=== PATIENT | female | born 1990 | race Caucasian/White ===

== ENCOUNTER 2021-11-19 07:09 | Inpatient (IN) | payer OTHER ==
[~2021-11-19] VITALS: Ht 170.2 cm; Wt 136.1 kg
[2021-11-19] MEDS ORDERED: SODIUM CHLORIDE 0.9% 1000ML 1,000 ML IV STA (07:15)
[2021-11-19] MEDS ORDERED: ONDANSETRON HCL INJ 2MG/ML 2ML 2 MG/ML VIAL IV STA (07:15)
[2021-11-19 07:33] LABS: BASOPHILS # (AUTO) 0.1 (0.0-0.1); BASOPHILS % 0.6 % (0.0-1.0); EOSINOPHILS # (AUTO) 0.2 (0.0-0.4); EOSINOPHILS % 2.1 % (0.0-6.0); HEMATOCRIT 33.4 % (34.2-44.1); HEMOGLOBIN 10.5 g/dL (12.0-16.0); LYMPHOCYTES # (AUTO) 2.2 (1.0-3.2); LYMPHOCYTES % 26.8 % (18.0-39.1); MEAN CORPUSCULAR HEMOGLOBIN 26.8 pg (28-32); MEAN CORPUSCULAR HGB CONC 31.4 g/dL (31-35); MEAN CORPUSCULAR VOLUME 85.2 fL (81-99); MONOCYTES # (AUTO) 0.6 (0.2-0.8); MONOCYTES % 6.8 % (4.4-11.3); NEUTROPHILS # (AUTO) 5.2 (2.1-6.9); NEUTROPHILS % 62.7 % (38.7-80.0); PLATELET COUNT 238 x10e3/uL (140-360); RED BLOOD COUNT 3.92 x10e6/uL (3.6-5.1); RED CELL DISTRIBUTION WIDTH 13.5 % (11.7-14.4)
[2021-11-19 07:58] LABS: PROTHROMBIN TIME 14.1 seconds (11.9-14.5)
[2021-11-19 07:59] LABS: PARTIAL THROMBOPLASTIN TIME 25.8 seconds (23.8-35.5)
[2021-11-19 08:03] LABS: ALBUMIN 3.7 g/dL (3.5-5.0); ALBUMIN/GLOBULIN RATIO 1.3 (0.8-2.0); ANION GAP 17.9 mmol/L (8-16); CALCIUM 8.4 mg/dL (8.4-10.2); CREATININE, SERUM 0.74 mg/dL (0.57-1.11); POTASSIUM 3.9 mmol/L (3.5-5.1)
[2021-11-19 08:16] LABS: CLARITY,URINE CLEAR (CLEAR); COLOR,URINE YELLOW (YELLOW); KETONES,URINE NEGATIVE (NEGATIVE); LEUKOCYTE ESTERASE ,URINE TRACE (NEGATIVE); NITRITE,URINE NEGATIVE (NEGATIVE); PROTEIN,URINE DIPSTICK 1+ (NEGATIVE); URINE UROBILINOGEN 0.2 mg/dL (0.2 - 1)
[2021-11-19 08:32] LABS: BACTERIA,URINE MANY /HPF; EPITHELIAL CELLS,URINE MANY /LPF; RBC,URINE 0-5 /HPF (0-5); WBC,URINE (MAN) 21-50 /HPF (0-5)
[2021-11-19] MEDS ORDERED: IOPAMIDOL 370 MG/ML 100 ML INFUS..BTL INJ ONE (08:33)
[2021-11-19] MEDS ORDERED: Morphine 2mg Syringe 2 MG/ML SYR IV PRN (11:00)
[2021-11-19] MEDS ORDERED: SODIUM CHLORIDE 0.9% 1000ML 1,000 ML IV SCH (11:00)
[2021-11-19] MEDS ORDERED: ONDANSETRON HCL INJ 2MG/ML 2ML 2 MG/ML VIAL IV PRN ×2 (11:00→11:15)
[2021-11-19] MEDS ORDERED: HYDRALAZINE HCL 20 MG/ML VIAL IV PRN (11:15)
[2021-11-19] MEDS ORDERED: DOCUSATE SODIUM 100 MG CAP PO PRN (11:15)
[2021-11-19] MEDS ORDERED: ALBUTEROL/IPRATROPIUM 3 ML NEB NEB PRN (11:15)
[2021-11-19] MEDS ORDERED: ACETAMINOPHEN 325 MG TAB PO PRN (11:15)
[2021-11-19] MEDS ORDERED: POTASSIUM CHLORIDE 20 MEQ TAB CR PO PRN (11:15)
[2021-11-19] MEDS ORDERED: LIDOCAINE 4% PATCH TP PRN (11:15)
[2021-11-19] MEDS ORDERED: DEXTROSE 50% SYRINGE 50 ML IV PRN (11:15)
[2021-11-19] MEDS ORDERED: DIPHENHYDRAMINE HCL 25 MG CAP PO PRN (11:15)
[2021-11-19] MEDS ORDERED: BENZONATATE 100 MG CAP PO PRN (11:15)
[2021-11-19] MEDS ORDERED: SIMETHICONE 80 MG CHEW PO PRN (11:15)
[2021-11-19 11:34] LABS: % IRON SATURATION 15 % (15-50); IRON 67 ug/dL (50-170); TOTAL IRON BINDING CAPACITY 444 ug/dL (261-478); TRANSFERRIN 317 mg/dL (180-382)
[2021-11-19] MEDS ORDERED: QUETIAPINE FUMARATE 25 MG TAB PO SCH (11:45)
[2021-11-19] MEDS: DEXTROSE 5%/0.9% SOD CHL 1,000 ML IV SCH (12:20)
[2021-11-19] MEDS: PAROXETINE HCL 12.5 MG TABSR PO SCH (13:00)
[2021-11-19] MEDS ORDERED: PAROXETINE HCL25 MG PO (13:30)
[2021-11-19] MEDS ORDERED: QUETIAPINE FUMA25 MG PO (13:30)
[2021-11-19 13:58] VITALS: BP 136/66
[2021-11-19] MEDS ORDERED: CITRATE OF MAGNESIA 300ML BOTTLE PO ONE (15:30)
[2021-11-19 15:46] VITALS: BP 127/72
[2021-11-19 17:23] LABS: HEMATOCRIT 30.5 % (34.2-44.1); HEMOGLOBIN 9.4 g/dL (12.0-16.0)
[2021-11-19 20:00] VITALS: BP 117/80
[2021-11-19] MEDS ORDERED: LORAZEPAM INJ 2 MG/ML VIAL ONE (21:02)
[2021-11-19] MEDS ORDERED: DIPHENHYDRAMINE HCL INJ 50 MG/ML VIAL ONE (21:03)
[2021-11-19 21:12] LABS: BASOPHILS % 0.5 % (0.0-1.0); EOSINOPHILS % 0.4 % (0.0-6.0); HEMATOCRIT 24.5 % (34.2-44.1); HEMOGLOBIN 7.6 g/dL (12.0-16.0); LYMPHOCYTES # (AUTO) 2.2 (1.0-3.2); LYMPHOCYTES % 26.1 % (18.0-39.1); MEAN CORPUSCULAR VOLUME 87.2 fL (81-99); MONOCYTES # (AUTO) 0.6 (0.2-0.8); MONOCYTES % 6.6 % (4.4-11.3); NEUTROPHILS # (AUTO) 5.4 (2.1-6.9); NEUTROPHILS % 65.4 % (38.7-80.0); PLATELET COUNT 238 x10e3/uL (140-360); RED BLOOD COUNT 2.81 x10e6/uL (3.6-5.1); RED CELL DISTRIBUTION WIDTH 13.6 % (11.7-14.4)
[2021-11-19 21:32] LABS: ALBUMIN 3.1 g/dL (3.5-5.0); ALBUMIN/GLOBULIN RATIO 1.5 (0.8-2.0); ANION GAP 15.2 mmol/L (8-16); CALCIUM 7.7 mg/dL (8.4-10.2); CREATININE, SERUM 0.69 mg/dL (0.57-1.11); POTASSIUM 4.2 mmol/L (3.5-5.1)
[2021-11-19] MEDS ORDERED: DIPHENHYDRAMINE HCL INJ 50 MG/ML VIAL IV ONE (21:39)
[2021-11-19] MEDS ORDERED: LORAZEPAM INJ 2 MG/ML VIAL IV ONE (21:39)
[2021-11-19 21:52] VITALS: BP 117/80
[2021-11-19] MEDS ORDERED: SODIUM CHLORIDE 0.9% 250ML 250 ML IV ONE (22:00)
[2021-11-20] VITALS: BP 98/65
[2021-11-20] MEDS ORDERED: SODIUM CHLORIDE 0.9% 1000ML 1,000 ML ONE ×2 (00:31→04:01)
[2021-11-20] MEDS: DEXTROSE 5%/0.9% SOD CHL 1,000 ML IV SCH ×2 (00:35→11:56)
[2021-11-20] MEDS ORDERED: GADOBENATE DIMEGLUMINE 1 ML IV ONE (02:36)
[2021-11-20] MEDS ORDERED: CITRATE OF MAGNESIA 300ML BOTTLE PO ONE ×2 (06:00→17:00)
[2021-11-20 08:20] VITALS: BP 134/70
[2021-11-20] MEDS: PAROXETINE HCL 12.5 MG TABSR PO SCH (09:00)
[2021-11-20] MEDS: THIAMINE HCL INJ 100 MG/ML 2ML VIAL IV SCH (09:05)
[2021-11-20 10:02] VITALS: BP 134/70
[2021-11-20 10:17] LABS: BASOPHILS % 0.4 % (0.0-1.0); EOSINOPHILS # (AUTO) 0.1 (0.0-0.4); HEMATOCRIT 26.2 % (34.2-44.1); HEMOGLOBIN 8.3 g/dL (12.0-16.0); LYMPHOCYTES # (AUTO) 2.1 (1.0-3.2); LYMPHOCYTES % 28.7 % (18.0-39.1); MEAN CORPUSCULAR HEMOGLOBIN 27.9 pg (28-32); MEAN CORPUSCULAR HGB CONC 31.7 g/dL (31-35); MEAN CORPUSCULAR VOLUME 88.2 fL (81-99); MONOCYTES # (AUTO) 0.6 (0.2-0.8); MONOCYTES % 8.7 % (4.4-11.3); NEUTROPHILS # (AUTO) 4.4 (2.1-6.9); PLATELET COUNT 178 x10e3/uL (140-360); RED BLOOD COUNT 2.97 x10e6/uL (3.6-5.1); RED CELL DISTRIBUTION WIDTH 15.2 % (11.7-14.4)
[2021-11-20 10:47] LABS: ANION GAP 12.2 mmol/L (8-16); CALCIUM 7.6 mg/dL (8.4-10.2); CREATININE, SERUM 0.68 mg/dL (0.57-1.11); POTASSIUM 4.2 mmol/L (3.5-5.1)
[2021-11-20 10:50] VITALS: BP 138/78
[2021-11-20 15:21] VITALS: BP 132/80
[2021-11-20 18:58] LABS: HEMATOCRIT 24.9 % (34.2-44.1); HEMOGLOBIN 7.9 g/dL (12.0-16.0)
[2021-11-20] MEDS ORDERED: PEG (High)/E-LYTE SOLN 4,000 ML BTL PO ONE (19:00)
[2021-11-20 19:17] LABS: ALBUMIN 3.3 g/dL (3.5-5.0); ALBUMIN/GLOBULIN RATIO 1.5 (0.8-2.0); ANION GAP 12.8 mmol/L (8-16); CALCIUM 7.8 mg/dL (8.4-10.2); CREATININE, SERUM 0.64 mg/dL (0.57-1.11); MAGNESIUM 1.8 MG/DL (1.3-2.1); POTASSIUM 3.8 mmol/L (3.5-5.1)
[2021-11-20 19:38] LABS: THYROID STIMULATING HORMONE 5.454 uIU/mL (0.350-4.940)
[2021-11-20 20:00] VITALS: BP 136/83
[2021-11-20] MEDS: QUETIAPINE FUMARATE 25 MG TAB PO SCH ×2 (21:32)
[2021-11-20] MEDS: MELATONIN 5 MG TABLET PO PRN (21:38)
[2021-11-20] MEDS ORDERED: ONDANSETRON HCL INJ 2MG/ML 2ML 2 MG/ML VIAL IV PRN (22:00)
[2021-11-21] VITALS (7 sets, daily range): BP systolic 105–148; BP diastolic 55–66
[2021-11-21] MEDS: DEXTROSE 5%/0.9% SOD CHL 1,000 ML IV SCH (04:41)
[2021-11-21 06:32] LABS: BASOPHILS % 0.4 % (0.0-1.0); EOSINOPHILS # (AUTO) 0.1 (0.0-0.4); EOSINOPHILS % 2.7 % (0.0-6.0); LYMPHOCYTES # (AUTO) 1.9 (1.0-3.2); LYMPHOCYTES % 41.5 % (18.0-39.1); MEAN CORPUSCULAR HEMOGLOBIN 28.3 pg (28-32); MEAN CORPUSCULAR VOLUME 88.3 fL (81-99); MONOCYTES # (AUTO) 0.4 (0.2-0.8); MONOCYTES % 8.9 % (4.4-11.3); NEUTROPHILS # (AUTO) 2.1 (2.1-6.9); NEUTROPHILS % 45.4 % (38.7-80.0); PLATELET COUNT 136 x10e3/uL (140-360); RED CELL DISTRIBUTION WIDTH 15.1 % (11.7-14.4)
[2021-11-21 06:47] LABS: ANION GAP 11.2 mmol/L (8-16); CALCIUM 7.4 mg/dL (8.4-10.2); CREATININE, SERUM 0.61 mg/dL (0.57-1.11); POTASSIUM 3.2 mmol/L (3.5-5.1)
[2021-11-21 06:55] LABS: HEMATOCRIT 20.3 % (34.2-44.1); HEMOGLOBIN 6.5 g/dL (12.0-16.0)
[2021-11-21 07:18] LABS: MAGNESIUM 2.1 MG/DL (1.3-2.1); PHOSPHORUS 2.6 MG/DL (2.3-4.7)
[2021-11-21] MEDS ORDERED: SODIUM CHLORIDE 0.9% 250ML 250 ML IV ONE (07:30)
[2021-11-21] MEDS: THIAMINE HCL INJ 100 MG/ML 2ML VIAL IV SCH (08:25)
[2021-11-21] MEDS: PAROXETINE HCL 12.5 MG TABSR PO SCH ×2 (08:25→09:00)
[2021-11-21] MEDS ORDERED: PROPOFOL IV EMULSION 10 MG/ML 20 ML VIAL ONE (13:13)
[2021-11-21] MEDS ORDERED: LIDOCAINE HCL 2% LOCAL INJ 5 ML SDV VIAL INJ ONE (13:13)
[2021-11-21] MEDS ORDERED: KETAMINE HCL INJ 50 MG/ML 10 ML VIAL ONE (13:20)
[2021-11-21] MEDS ORDERED: SODIUM CHLORIDE 0.9% 250ML 250 ML ONE (13:30)
[2021-11-21] MEDS: PANTOPRAZOLE SOD 40 MG TABEC PO SCH (17:09)
[2021-11-21 18:39] LABS: HEMATOCRIT 29.7 % (34.2-44.1); HEMOGLOBIN 8.9 g/dL (12.0-16.0)
[2021-11-21] MEDS: QUETIAPINE FUMARATE 25 MG TAB PO SCH (21:06)
[2021-11-21] MEDS: MELATONIN 5 MG TABLET PO PRN (21:07)
[2021-11-22] VITALS: BP 122/49
[2021-11-22 04:00] VITALS: BP 114/46
[2021-11-22] MEDS: SUCRALFATE 1 GM/10 ML SUSP NG SCH ×3 (07:30→16:30)
[2021-11-22 07:35] VITALS: BP 126/63
[2021-11-22] MEDS: PANTOPRAZOLE SOD 40 MG TABEC PO SCH ×2 (09:00→17:00)
[2021-11-22] MEDS: THIAMINE HCL INJ 100 MG/ML 2ML VIAL IV SCH (09:00)
[2021-11-22] MEDS: PAROXETINE HCL 12.5 MG TABSR PO SCH (09:00)
[2021-11-22 09:31] LABS: ANION GAP 13.7 mmol/L (8-16); CALCIUM 7.8 mg/dL (8.4-10.2); CREATININE, SERUM 0.6 mg/dL (0.57-1.11); POTASSIUM 3.7 mmol/L (3.5-5.1)
[2021-11-22 09:46] LABS: BASOPHILS % 0.6 % (0.0-1.0); EOSINOPHILS # (AUTO) 0.2 (0.0-0.4); HEMATOCRIT 26.1 % (34.2-44.1); HEMOGLOBIN 8.4 g/dL (12.0-16.0); LYMPHOCYTES # (AUTO) 1.5 (1.0-3.2); LYMPHOCYTES % 28.8 % (18.0-39.1); MEAN CORPUSCULAR HEMOGLOBIN 27.7 pg (28-32); MEAN CORPUSCULAR HGB CONC 32.2 g/dL (31-35); MEAN CORPUSCULAR VOLUME 86.1 fL (81-99); MONOCYTES # (AUTO) 0.5 (0.2-0.8); MONOCYTES % 8.5 % (4.4-11.3); NEUTROPHILS # (AUTO) 3.1 (2.1-6.9); NEUTROPHILS % 58.3 % (38.7-80.0); PLATELET COUNT 115 x10e3/uL (140-360); RED BLOOD COUNT 3.03 x10e6/uL (3.6-5.1); RED CELL DISTRIBUTION WIDTH 15.2 % (11.7-14.4)
[2021-11-22] MEDS ORDERED: SODIUM CHLORIDE 0.9% 250ML 250 ML ONE (09:49)
[2021-11-22 10:07] VITALS: BP 126/63
[2021-11-22 11:25] VITALS: BP 103/58
[2021-11-22] MEDS ORDERED: PANTOPRAZOLE SO40 MG PO (13:58)
[2021-11-22] MEDS ORDERED: CARAFATE1 GM PO (13:58)
[2021-11-22 16:15] VITALS: BP 101/53
[2021-11-22] MEDS ORDERED: ONDANSETRON HCL 4 MG ORAL DISINTEGRATING TAB PO PRN (18:30)
[2021-11-23] MEDS ORDERED: THIAMINE HCL 100 MG TAB PO SCH (09:00)
== END 2021-11-22 18:15 | disposition home or self-care (01) | DRG 378 ==
LOC: ER 07:20 → ERHOLD 10:47 → MED/SURG 13:16
PROVIDERS: ADMIT Internal Medicine; ATTEND Internal Medicine
PROC: 0DB78ZX Excision of Stomach, Pylorus, Via Natural or Artificial Opening Endoscopic, Diagnostic (ICD-10-PCS; principal; 2021-11-19)
PROC: 30233N1 Transfusion of Nonautologous Red Blood Cells into Peripheral Vein, Percutaneous Approach (ICD-10-PCS; 2021-11-20)
PROC: 0DJD8ZZ Inspection of Lower Intestinal Tract, Via Natural or Artificial Opening Endoscopic (ICD-10-PCS; 2021-11-21)
DX: K29.71 Gastritis, unspecified, with bleeding (principal); Z68.42 Body mass index [BMI] 45.0-49.9, adult; K29.81 Duodenitis with bleeding; R56.9 Unspecified convulsions; K21.01 Gastro-esophageal reflux disease with esophagitis, with bleeding; N92.0 Excessive and frequent menstruation with regular cycle; E66.01 Morbid (severe) obesity due to excess calories; D64.9 Anemia, unspecified; Z20.822 Contact with and (suspected) exposure to COVID-19; F41.9 Anxiety disorder, unspecified; F32.A Depression, unspecified; K59.00 Constipation, unspecified; K80.80 Other cholelithiasis without obstruction; D25.9 Leiomyoma of uterus, unspecified; F79 Unspecified intellectual disabilities; K64.8 Other hemorrhoids; R40.4 Transient alteration of awareness; G47.33 Obstructive sleep apnea (adult) (pediatric); E78.5 Hyperlipidemia, unspecified; K44.9 Diaphragmatic hernia without obstruction or gangrene; Z80.0 Family history of malignant neoplasm of digestive organs
CPT/HCPCS: 36415; 43239; 45378; 70450; 70553; 74174; 80048; 80053; 81001; 82728; 83540; 83690; 83735; 84100; 84443; 84466; 84702; 85014; 85018; 85025; 85610; 85730; 86850; 86900; 86920; 88305; 88312; 88342; 94799; 95819; 99284; J0696; J1200; J2001; J2060; J2405; J3411; J7030; J7042; J7050; P9016; Q9967